=== PATIENT | female | born 1995 | race Caucasian/White ===

== ENCOUNTER 2017-08-31 08:00 | Outpatient (CLI) | payer MEDICAID | END 2017-08-31 08:01 | disposition home or self-care (01) | LOC: LAB.F 08:00 | PROVIDERS: ATTEND Physician Assistant Medical | DX: J02.9 Acute pharyngitis, unspecified (principal) | CPT/HCPCS: 87070 ==

== ENCOUNTER 2021-08-24 14:30 | Outpatient (CLI) | payer SELFPAY | END 2021-08-24 23:59 | disposition home or self-care (01) | LOC: LAB.S 14:30 | PROVIDERS: ATTEND Physician Assistant Medical | DX: R07.0 Pain in throat (principal) | CPT/HCPCS: 87070 ==